=== PATIENT | male | born 1950 | race Two or more races ===

== ENCOUNTER 2021-06-14 18:07 | Emergency (ER) | payer MEDICARE, OTHER ==
[~2021-06-14] VITALS: Ht 182.9 cm; Wt 77.0 kg
[2021-06-14] MEDS ORDERED: TETANUS, DIPHTHERIA, PERTUSSIS VAC/PF 0.5ML (>7YR OLD) IM ONE (21:00)
[2021-06-14 23:20] VITALS: BP 128/80
== END 2021-06-14 23:20 | disposition home or self-care (01) ==
LOC: ER 19:28
DX: S01.81XA Laceration without foreign body of other part of head, initial encounter (principal); W01.198A Fall on same level from slipping, tripping and stumbling with subsequent striking against other object, initial encounter; Y93.89 Activity, other specified; Y92.488 Other paved roadways as the place of occurrence of the external cause; Y99.8 Other external cause status
CPT/HCPCS: 90471; 90715; 99284